=== PATIENT | male | born 1960 | race Caucasian/White ===

== ENCOUNTER → 2024-04-05 08:04 | Outpatient (REF) | payer BC, SELFPAY ==
[2024-04-05 09:01] LABS: % Eosinophils 6.5 % (0-6); % Immature Granulocytes 0.2 % (0-0.5); % Lymphocytes 28.3 % (20.5-51.1); % Monocytes 9.2 % (1.7-9.3); % Neutrophils 54.8 % (42.2-75.2); Absolute Eosinophils 0.3 10^3/uL (0-0.7); Absolute Lymphocytes 1.2 10^3/uL (1.2-3.4); Absolute Monocytes 0.4 10^3/uL (0.1-0.6); Absolute Neutrophils 2.3 10^3/uL (1.4-6.5); Hematocrit 45.6 % (39.0-52.0); Hemoglobin 15.4 g/dL (13.0-18.0); Mean Corp Hgb Conc. 33.8 g/dL (33.0-37.0); Mean Corpuscular Hgb 30.5 pg (27.0-31.0); Mean Corpuscular Volume 90.3 fL (80.0-94.0); Mean Platelet Volume 9.5 fL (7.4-10.4); Nucleated Red Blood Cells % 0 % (-); Platelet Count 288 10^3/uL (130-400); Red Blood Cell Count 5.05 10^6/uL (4.70-6.10); Red Cell Dist. Width 12.3 % (11.5-14.5); White Blood Cell Count 4.1 10^3/uL (4.8-10.8)
[2024-04-05 09:25] LABS: ALT (SGPT) 21 U/L (0-50); AST (SGOT) 27 U/L (17-59); Albumin 4.6 g/dl (3.5-5.0); Alkaline Phosphatase 58 U/L (38-126); Blood Urea Nitrogen 18 mg/dl (9-20); Calcium 9.7 mg/dl (8.4-10.2); Carbon Dioxide 29 mmol/L (22-30); Chloride 102 mmol/L (98-107); Glucose 88 mg/dl (70-99); HDL Cholesterol 79 mg/dl; LDL Cholesterol, Calculated 144 mg/dl; Sodium 142 mmol/L (135-145); Total Bilirubin 0.7 mg/dl (0.2-1.3); Total Cholesterol 234 mg/dl (50-199); Total Protein 7.3 g/dl (6.3-8.2); Triglyceride 58 mg/dl (10-149); Very Low Density Lipoprotein 11 mg/dl (0-30); eGFR > 60.00
[2024-04-07 15:22] LABS: PSA Total 3.4 ng/mL (0.0-4.0)
== END ==
LOC: REG 08:04
PROVIDERS: ATTENDING PHYSICIAN Surgery; FAMILY PHYSICIAN Nurse Practitioner
DX: Z00.00 Encounter for general adult medical examination without abnormal findings (principal); Z12.5 Encounter for screening for malignant neoplasm of prostate
CPT/HCPCS: 36415; 80053; 80061; 84153; 84154; 85025

== ENCOUNTER 2024-07-17 16:30 | Observation (INO) | payer BC, SELFPAY ==
[2024-07-17] VITALS (10 sets, daily range): BP systolic 105–158; BP diastolic 57–136; BMI 25.4; BMI 24.8
[2024-07-17 13:27] LABS: % Basophils 0.9 % (0-2); % Eosinophils 1.5 % (0-6); % Monocytes 8.2 % (1.7-9.3); % Neutrophils 68.4 % (42.2-75.2); Absolute Basophils 0.1 10^3/uL (0-0.2); Absolute Eosinophils 0.1 10^3/uL (0-0.7); Absolute Lymphocytes 1.2 10^3/uL (1.2-3.4); Absolute Monocytes 0.5 10^3/uL (0.1-0.6); Hematocrit 45.2 % (39.0-52.0); Hemoglobin 15.1 g/dL (13.0-18.0); Mean Corp Hgb Conc. 33.4 g/dL (33.0-37.0); Mean Corpuscular Hgb 30.8 pg (27.0-31.0); Mean Corpuscular Volume 92.2 fL (80.0-94.0); Mean Platelet Volume 9.1 fL (7.4-10.4); Nucleated Red Blood Cells % 0 % (-); Platelet Count 299 10^3/uL (130-400); Red Cell Dist. Width 12.1 % (11.5-14.5); White Blood Cell Count 5.8 10^3/uL (4.8-10.8)
[2024-07-17 13:37] LABS: ALT (SGPT) 16 U/L (0-50); AST (SGOT) 21 U/L (17-59); Albumin 4.8 g/dl (3.5-5.0); Alkaline Phosphatase 66 U/L (38-126); Blood Urea Nitrogen 20 mg/dl (9-20); Calcium 9.5 mg/dl (8.4-10.2); Carbon Dioxide 35 mmol/L (22-30); Chloride 98 mmol/L (98-107); Estimated Creatinine Clearance 71 ml/min; Glucose 102 mg/dl (70-99); INR 1.09; PT 14.6 Sec (11.4-14.6); Potassium 4.5 mmol/L (3.5-5.1); Sodium 137 mmol/L (135-145); Total Bilirubin 0.9 mg/dl (0.2-1.3); Total Protein 7.3 g/dl (6.3-8.2); eGFR > 60.00
[2024-07-17 13:38] LABS: APTT 29.8 Sec (23.4-35.0)
[2024-07-17 13:49] LABS: Troponin I < 0.012 ng/ml
--- NOTE | 2024-07-17 14:21 | ED.GENMED ---
History of Present Illness
General
Chief Complaint: Numbness
Source: patient
Exam Limitations: none
Time Seen by Provider: 07/17/24 13:27
Nursing documentation reviewed up to this point in time: agreed with
History of Present Illness
History of Present Illness:
63-year-old male with no reported chronic medical issues who presents to the emergency room for evaluation of left-sided facial numbness. Patient reports that he was in his normal state was driving this morning around 6 AM and had sudden onset of
left-sided facial numbness. He says he had associated dry mouth. He says that initially he thought it could be from how he was wearing his headset or something simple but symptoms were persistent for a few hours and so he ultimately decided to
come to the emergency room. He says his symptoms have since completely resolved and he is asymptomatic here. He says he did not have any associated numbness or weakness in his extremities. He did not note any facial drooping or speech
difficulties. He did not have any headache or neck pain. Did not have any associated chest pain. He denies any other complaints. He says he has never had similar symptoms in the past. He is very concerned because he has a strong family history
of stroke/TIA including both of his brothers who are only a few years older than him.
Review of Systems
Review of Systems
All Other Systems: ROS reviewed and negative except as documented in HPI and ROS
Constitutional: Denies fever
Respiratory: Denies trouble breathing
Cardiac: Denies chest pain
ABD/GI: Denies abdominal pain, nausea or vomiting
: Denies flank pain
Musculoskeletal: Denies neck pain or back pain
Neurological: Reports numbness; Denies dizzy, headache or weakness
Phy Exam
Physical Exam
Physical Exam:
General: Awake, alert, oriented x3; no acute distress
Head: Normocephalic, atraumatic
Eyes: Conjunctiva normal, EOMI, pupils equal round and reactive to light bilaterally
Throat: Airway intact, handling secretions
Neck: Trachea midline, supple without meningismus, no carotid bruits
Lungs: Clear to auscultation bilaterally, no wheezing, rales, rhonchi
Heart: Regular rate and rhythm, no murmurs, gallops, or rubs
Abd: Soft, non distended, nontender
Neuro: Cranial nerves intact 2 through 12, speech fluid with no dysarthria or aphasia, no limb ataxia, motor and sensory intact proximally distally in the upper and lower extremities
Skin: no rash
Extremities: No edema in extremities, equal pulses in all extremities
Scores
NIH Stroke Score
Level of Consciousness: 0 - Alert
LOC Questions: 0-Answers both correctly
LOC Commands: 0-Performs both correctly
Best Horizontal Gaze: 0-Normal
Visual Bee: 0=Normal, no visual loss
Facial Palsy: 0=Normal, symmetrical
Motor - Right Arm: 0=No drift 10 seconds
Motor - Left Arm: 0=No drift 10 seconds
Motor - Right Le-No drift 5 seconds
Motor - Left Le-No drift 5 seconds
Limb Ataxia: 0-Absent
Sensation: 0-Normal
Best Language: 0-No aphasia
Dysarthria: 0-Normal
Extinction and Inattention: 0-No abnormality
Total Score:: 0
Heart Failure Risk
Heart Failure Risk Score: Not Applicable
Heart Score for Chest Pain Patients
STEMI patient?: Not applicable
Withdrawal Assessment of Alcohol
Withdrawal Assessment Completed?: Not applicable
Course
Orders/Labs/Results
Orders:
Orders
07/17/24 13:04
Electrocardiogram (*1) Urgent
Reason for Study: Other
Other Reason for Exam: Possible Stroke
CT Head W/o Iv Contrast Urgent
Comment:
Reason For Exam: facial numbness
EKG- Treatment ONCE
07/17/24 13:11
Complete Blood Count/With Diff Urgent
Comprehensive Metabolic Panel Urgent
PTT Urgent
Prothrombin Time Urgent
Troponin I Urgent
Abnormal Lab Results
07/17/24
13:11
Carbon Dioxide 35 H mmol/L
(22-30)
Glucose 102 H mg/dl
(70-99)
07/17/24 13:11
07/17/24 13:11
Vital Signs
Initial and Last Documented VS:
Initial Vital Signs
Temp Pulse Resp BP Pulse Ox
36.7 C 63 18 153/79 100
07/17/24 13:00 07/17/24 13:00 07/17/24 13:00 07/17/24 13:00 07/17/24 13:00
Last Documented Vital Signs
Temp Pulse Resp BP Pulse Ox
36.7 C 55 18 115/66 100
07/17/24 13:00 07/17/24 15:00 07/17/24 15:00 07/17/24 15:00 07/17/24 13:00
MDM/Problems Addressed
Differential Diagnosis Includes:
TIA, trigeminal neuralgia, anxiety/panic, transient sialolith
MDM/Problems Addressed:
63-year-old male presents for evaluation after an episode of left-sided facial numbness and dry mouth that lasted for approximately 2 or 3 hours and has completely resolved. Hypertensive otherwise normal vitals. Physical exam as above. He had
labs sent in triage including a CBC and a CMP which showed no clinically significant abnormalities. He had an EKG which showed no STEMI and troponin which was undetectable. He had a CT head which was negative for any acute pathology. Somewhat
lower suspicion that this was a TIA based on clinical presentation but he is very concerned about his family history Case discussed with neurology to evaluate.
Discussed case with neurology recommended admission for TIA evaluation. Case discussed with hospitalist.
Acute Exacerbation and/or Progression of Chronic Illness:
Acutely hypertensive
Acute Exacerbation and/or Progression of Chronic Illness: HTN
*Radiology
Radiology exam reviewed: radiology read reviewed
*Pulse Oximetry
Patient hypoxic: no
*EKG
Interpreted by ED Provider?: Yes
Heart Rate: 60
Rate: normal
Rhythm: sinus
[place]: normal axis
Interval: normal interval
QRS Pattern: normal QRS
Ischemia: no ischemia
*Critical Care Note
Total Time (30-74mins, 75-104mins- exclusive of procedures): Not Applicable
Data Reviewed
Source: patient
Patient Management
Discussion with other providers: Hospitalist (Discussed with hospitalist) and Business Intelligence Analyst (Discussed with neurology)
Escalation/DeEscalation of care consider admission/obs:
Admission indicated
ED Attending Note
-
Portions of this chart may have been created with voice recognition software.� Occasional wrong word or��sound alike� substitutions may have occurred due to the inherent limitations of voice recognition software.
Discharge Plan
Departure
Patient Disposition: Admit
Date of Disposition: 07/17/24
Time of Disposition: 15:50
Admit to doctor: Ingrid
Presentation/result/management discussed w/ accepting MD/DO: Hospitalist
Discharge Problem:
TIA (transient ischemic attack)
Prescriptions:
No Action
Co Q-10
1 tab PO DAILY
Vitamin B-12
1 tab PO DAILY
folic acid
1 tab PO DAILY
Referrals:
Cheri Villatoro CRNP [Family Provider] -
Interventions
Interventions:
*Risk Screen - Suicide Last Done: 07/17/24 13:00
*General Assessment Last Done: 07/17/24 13:00
*Neglect/Abuse Screening Last Done: 07/17/24 13:00
ED- Fall Risk Assessment Last Done: 07/17/24 13:29
*ED COVID-19 Vaccine History Last Done: 07/17/24 13:00
ED- Neurological Assessment Last Done: 07/17/24 13:29
Discharge Date and Time
Print Language: CAMBODIAN
--- NOTE | 2024-07-17 14:23 | EDRN ---
RE- AMIO:
Hold unless over 100 sys then restart at 0.5 mg/min
--- NOTE | 2024-07-17 14:42 | CON.NEURO ---
Consultation
Order
Date of Consultation: 07/17/24
Requesting Provider: Rambo Fernandes M.D.
Reason for Consult: Numbness
Neurology Consultation Note.
HPI: This is a 63-year-old man who presented to [facility] on 07/17/2024 with transient sensory symptoms. According to the patient he developed acute left facial numbness that lasted for around 2-3 hours on the day of presentation.
The sensation was described as a 'strange feeling' localized primarily to the left side of the face, including the inside of the mouth making him to almost bite his left cheek.
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 He delayed seeking medical attention for approximately 6 hours after symptom onset. Mr. Keys states that he has had recurrent episodes of visual phenomena and was told to have
ocular migraine in the past. His visual changes would last for about 10 minutes before complete resolution and were not associated with headaches. No reports of head trauma, fever, abnormal movements. The patient reports taking 650mg on the day
of the visit.
ER VS: 153/79, 63, afebrile.
EKG: NSR, QTc Int : 398 ms
PDMP: None
Labs: Glucose�102, normal WBCs, sodium, creatinine, LFTs.
CT head wo contrast�unremarkable
PMH: DLP, BPH, elevated PSA, ED, GERD, tubular adenoma
PSH: knee arthroscopy
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
FH: Father, 2 brothers�stroke, mother�migraine
All:NKDA
ROS: Constitutional: Negative. Negative for chills, fever and unexpected weight change.
HENT:, Positive for chronic bilateral tinnitus
Eyes: Negative. Negative for photophobia, pain and visual disturbance.
Respiratory: Negative for cough, choking and shortness of breath.
Cardiovascular: Negative for chest pain, palpitations and leg swelling.
Gastrointestinal: Positive for exertional
Endocrine: Negative. Negative for cold intolerance.
Genitourinary: Negative for dysuria, flank pain and urgency.
Musculoskeletal: Negative for back pain, gait problem, neck pain and neck stiffness.
Skin: Negative for rash.
Allergic/Immunologic: Negative. Negative for immunocompromised state.
Neurological: Positive for transient facial numbness
Psychiatric/Behavioral: Negative for behavioral problems, confusion and hallucinations.
General: Well developed. In no acute distress.
Cardio: Regular rate and rhythm without murmur. Extremities are without cyanosis or edema.
Neuro:
Mental Status: Alert, oriented to person, place, and date. Normal attention and recall. Good fund of knowledge. Follows complex requests across the midline. Comprehension, naming, and repetition intact. Immediate and delayed recall 3/3.
Cranial Nerves: Pupils are equally round and reactive to light. EOMs full. Visual hebert full to confrontation. No ptosis. No nystagmus. V1-V3 intact to light touch and pinprick bilaterally, symmetric. Face symmetric. Normal hearing AU. The
palate elevated well. SCMs and traps 5/5. Tongue midline. No dysarthria.
Motor: Normal bulk and tone. No pronator or arm drift. Strength 5/5 throughout. No clonus.
Reflexes: 2+ throughout the upper extremities and 1knees. Plantar responses flexor bilaterally.
Sensory: Normal pinprick, vibration and JPS.
Coordination: No dysmetria or tremor.
Gait: deferred
Assessment and Plan:
I. TIA versus sensory aura
II. Elevated blood pressure
III. Family history of strokes
-Continue Telemetry monitoring
-Please obtain brain MRI without janes
-Check magnesium, vitamin B12, globin A1c, lipid panel
-DAPT for 3 weeks
-Further workup will depend on brain MRI results
-DVT prophylaxis.
I personally reviewed all radiology and labs along with past medical records pertinent to current medical problems. Total time spent in patient care is 60 minutes.
Thank you for allowing us to participate in the care of this patient. We will continue to follow. Please do not hesitate to contact us with any questions or concerns.
Subjective/Objective
Subjective Data
Date of Service: July 17, 2024
Objective Data
Vital Signs
Temp Pulse Resp BP Pulse Ox
36.7 C 68 12 128/75 100
07/17/24 13:00 07/17/24 14:18 07/17/24 14:18 07/17/24 13:27 07/17/24 13:00
Lab Results
07/17/24 13:11
07/17/24 13:11
PT 14.6 Sec (11.4-14.6) 07/17/24 13:11
INR 1.09 07/17/24 13:11
APTT 29.8 Sec (23.4-35.0) 07/17/24 13:11
Sodium 137 mmol/L (135-145) 07/17/24 13:11
Potassium 4.5 mmol/L (3.5-5.1) 07/17/24 13:11
BUN 20 mg/dl (9-20) 07/17/24 13:11
Glucose 102 mg/dl (70-99) H 07/17/24 13:11
Calcium 9.5 mg/dl (8.4-10.2) 07/17/24 13:11
Patient Allergies
No Known Drug Allergies Allergy (Verified 07/17/24 13:03)
Unknown
Medications
-
Home Medications
�Medication �Instructions �Recorded
Co Q-10 1 tab PO DAILY 07/17/24
Vitamin B-12 1 tab PO DAILY 07/17/24
folic acid 1 tab PO DAILY 07/17/24
Vital Signs and Labs
-
Vital Signs and Labs:
Vital Signs
Temp Pulse Resp BP Pulse Ox
36.7 C 68 12 128/75 100
07/17/24 13:00 07/17/24 14:18 07/17/24 14:18 07/17/24 13:27 07/17/24 13:00
Lab Results
07/17/24 13:11
07/17/24 13:11
PT 14.6 Sec (11.4-14.6) 07/17/24 13:11
INR 1.09 07/17/24 13:11
APTT 29.8 Sec (23.4-35.0) 07/17/24 13:11
Sodium 137 mmol/L (135-145) 07/17/24 13:11
Potassium 4.5 mmol/L (3.5-5.1) 07/17/24 13:11
BUN 20 mg/dl (9-20) 07/17/24 13:11
Glucose 102 mg/dl (70-99) H 07/17/24 13:11
Calcium 9.5 mg/dl (8.4-10.2) 07/17/24 13:11
Home Medications
-
Home Medications
Co Q-10 1 tab PO DAILY 07/17/24
Vitamin B-12 1 tab PO DAILY 07/17/24
folic acid 1 tab PO DAILY 07/17/24
--- NOTE | 2024-07-17 16:28 | HPS.HSE ---
Family Physician
-
Family Physician: Cheri Villatoro
Chief Complaint
-
numbness of left face
History of Present Illness
63-year-old male past medical history of presenting with left-sided facial numbness. He was in his normal state of health and was driving this morning and around 6 AM he had sudden onset of left-sided facial numbness. He had associated dry mouth.
His symptoms persisted for a few hours so he ultimately decided to come to the emergency room. He took aspirin today. His symptoms have since mostly resolved some residual warm feeling and denies any other symptoms currently. He denies any
numbness or focal weakness. Denies any facial droop or speech difficulties. Denies any headache or neck pain. Denies chest pain.
Denies history of cardiac problems or high blood pressure.
A few years ago he had loss of smell and saw a neurologist who ordered MRI brain noted a small spot in his brain with no further follow-up.
He has strong family history of stroke/TIA in both of his brothers and father.
He drinks alcohol occasionally. Denies smoking.
Medical History
Past Medical History
Past Medical History: Reports None
Past Surgical History: Reports None
Social History
Tobacco: Non-smoker
Alcohol: Occasional
Drug: None
Family History
Family History: Not pertinent
Allergies / Home Medications
Allergies reflects when Allergies were last updated in [employer].
Home Medications with original date entered in [employer]
Allergy/Medication List:
Allergies
Allergy/AdvReac Type Severity Reaction Status Date / Time
No Known Drug Allergies Allergy Unknown Verified 07/17/24 13:03
Home Medications
aspirin 325 mg tablet 325 mg PO DAILYPRN PRN numbness 07/17/24
cholecalciferol (vitamin D3) 25 mcg (1,000 unit) tablet (Vitamin D3) 25 mcg PO QPM 07/17/24
coenzyme Q10 100 mg capsule (CoQ-10) 100 mg PO QPM 07/17/24
cyanocobalamin (vitamin B-12) 1,000 mcg tablet 1,000 mcg PO QPM 07/17/24
folic acid 800 mcg tablet 0.8 mg PO QPM 07/17/24
Review of Systems
-
History Source: Patient
A 12 point ROS was completed and negative except as noted: Yes
Constitutional: Reports No Symptoms
EENT: Reports No Symptoms
Respiratory: Reports No Symptoms
Cardiac: Reports No Symptoms
Abdomen/GI: Reports No Symptoms
: Reports No Symptoms
Musculoskeletal: Reports No Symptoms
Skin: Reports No Symptoms
Neurological: Reports No Symptoms
Endocrine: Reports No Symptoms
Hematologic/Lymphatic: Reports No Symptoms
Psych: Reports No Symptoms
Physical Exam
Vital Signs
Vital Signs
Temp Pulse Resp BP Pulse Ox
98.1 F 59 17 140/93 100
07/17/24 13:00 07/17/24 16:00 07/17/24 16:00 07/17/24 16:00 07/17/24 13:00
Physical Exam
General: Well Developed, Well Nourished and No Apparent Distress
HEENT: NormoCephalic, Moist mucous membranes and Atraumatic
Respiratory: Clear
Cardiac: S1/S2 and Regular Rhythm; No Murmur or Rub
GI: Soft, Non Tender, Non Distended and Normal Bowel Sounds; No Organomegaly
Rectal: Deferred by Provider
Musculoskeletal: No Clubbing, No Cyanosis and No Edema
Skin: No Rash
Neuro: Nonfocal/grossly intact
Laboratory Results
-
07/17/24 13:11
07/17/24 13:11
Laboratory Results
PT 14.6 Sec (11.4-14.6) 07/17/24 13:11
INR 1.09 07/17/24 13:11
APTT 29.8 Sec (23.4-35.0) 07/17/24 13:11
Total Bilirubin 0.9 mg/dl (0.2-1.3) 07/17/24 13:11
AST 21 U/L (17-59) 07/17/24 13:11
ALT 16 U/L (0-50) 07/17/24 13:11
Alkaline Phosphatase 66 U/L (38-126) 07/17/24 13:11
Troponin I < 0.012 ng/ml 07/17/24 13:11
Data Reviewed
-
Lab Data: Labs Reviewed by me
Old Records: Reviewed
Impression/Plan
-
IMPRESSION:
PLAN:
# TIA
-No symptoms currently or focal neurological deficits
-CT head shows no acute abnormality apart from bilateral ethmoid sinusitis
-Start aspirin
-CT angio head and neck pending
-Check MRI brain
-Check A1c and lipid panel
-Neurology consulted
Full code
DVT prophylaxis�SCDs
Regular diet
[2024-07-17] MEDS: VITAMIN B-12 1000 MCG PO (21:15)
--- NOTE | 2024-07-17 21:30 | PTCARENOTE ---
patient arrived from ED. VSS. Denies pain. Neuro check and NIH completed. NIH=0. PERRLA, tongue is midline, speech is clear/spontaneous/logical. Patient denies numbness/tingling. Sensations intact. OLSON with 5/5 strengths. OOB independently. Stroke
packet given and on patient's bedside table. Dual skin check completed with VALERI Mitchell. Patient and updated on plan of care. Telemetry placed--tele box # [id number]. Patient oriented to room and educated on importance of ringing before getting OOB to
use the restroom to decrease risk of falling, while in the hospital. Bed in lowest position. Call ibanez and personal belongings within reach.
[2024-07-17 22:32] LABS: HDL Cholesterol 75 mg/dl; LDL Cholesterol, Calculated 137 mg/dl; Total Cholesterol 229 mg/dl (50-199); Triglyceride 89 mg/dl (10-149); Very Low Density Lipoprotein 17 mg/dl (0-30)
[2024-07-18 03:00] VITALS: BP 128/72
[2024-07-18 07:30] VITALS: BP 137/82
[2024-07-18 07:50] LABS: % Basophils 0.9 % (0-2); % Eosinophils 3.8 % (0-6); % Immature Granulocytes 0.3 % (0-0.5); % Lymphocytes 30.8 % (20.5-51.1); % Monocytes 10.4 % (1.7-9.3); % Neutrophils 53.8 % (42.2-75.2); Absolute Eosinophils 0.1 10^3/uL (0-0.7); Absolute Monocytes 0.4 10^3/uL (0.1-0.6); Absolute Neutrophils 1.8 10^3/uL (1.4-6.5); Hematocrit 44.2 % (39.0-52.0); Hemoglobin 14.9 g/dL (13.0-18.0); Mean Corp Hgb Conc. 33.7 g/dL (33.0-37.0); Mean Corpuscular Hgb 30.8 pg (27.0-31.0); Mean Corpuscular Volume 91.5 fL (80.0-94.0); Mean Platelet Volume 9.6 fL (7.4-10.4); Nucleated Red Blood Cells % 0 % (-); Platelet Count 266 10^3/uL (130-400); Red Blood Cell Count 4.83 10^6/uL (4.70-6.10); Red Cell Dist. Width 12.4 % (11.5-14.5); White Blood Cell Count 3.4 10^3/uL (4.8-10.8)
[2024-07-18] MEDS: LOW STRENGTH ASPIRIN 81 MG PO (07:57)
[2024-07-18] MEDS: PLAVIX 75 MG PO (07:57)
--- NOTE | 2024-07-18 08:01 | W.PN.NEURO.1 ---
Today's Communication / Plan
-
.
Subjective/Objective
Subjective Data
Date of Service: July 18, 2024
Neurology follow-up note
24-hour events: Normotensive, intermittently bradycardic, afebrile.
Mr. Keys reports no new sensory, motor visual symptoms since admission.
Labs: LDL�137. Brain MRI�pending
PMH: DLP, BPH, elevated PSA, ED, GERD, tubular adenoma
PSH: knee arthroscopy
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
FH: Father, 2 brothers�stroke, mother�migraine
All:NKDA
ROS: Constitutional: Negative. Negative for chills, fever and unexpected weight change.
HENT:, Positive for chronic bilateral tinnitus
Eyes: Negative. Negative for photophobia, pain and visual disturbance.
Respiratory: Negative for cough, choking and shortness of breath.
Cardiovascular: Negative for chest pain, palpitations and leg swelling.
Gastrointestinal: Positive for exertional
Endocrine: Negative. Negative for cold intolerance.
Genitourinary: Negative for dysuria, flank pain and urgency.
Musculoskeletal: Negative for back pain, gait problem, neck pain and neck stiffness.
Skin: Negative for rash.
Allergic/Immunologic: Negative. Negative for immunocompromised state.
Neurological: Positive for transient facial numbness
Psychiatric/Behavioral: Negative for behavioral problems, confusion and hallucinations.
General: Well developed. In no acute distress.
Cardio: Regular rate and rhythm without murmur. Extremities are without cyanosis or edema.
Neuro:
Mental Status: Alert, oriented to person, place, and date. Normal attention and recall. Good fund of knowledge. Follows complex requests across the midline. Comprehension, naming, and repetition intact. Immediate and delayed recall 3/3.
Cranial Nerves: Pupils are equally round and reactive to light. EOMs full. Visual hebert full to confrontation. No ptosis. No nystagmus. V1-V3 intact to light touch and pinprick bilaterally, symmetric. Face symmetric. Normal hearing AU. The
palate elevated well. SCMs and traps 5/5. Tongue midline. No dysarthria.
Motor: Normal bulk and tone. No pronator or arm drift. Strength 5/5 throughout. No clonus.
Coordination: No dysmetria or tremor.
Gait: deferred
Assessment and Plan:
I. TIA versus sensory aura
II. Elevated blood pressure
III. Family history of strokes
-Continue Telemetry monitoring
-Please obtain brain MRI without janes
-Check magnesium, vitamin B12, globin A1c, lipid panel
-DAPT for 3 weeks
-Further workup will depend on brain MRI results
-DVT prophylaxis.
I personally reviewed all radiology and labs along with past medical records pertinent to current medical problems. Total time spent in patient care is 60 minutes.
Thank you for allowing us to participate in the care of this patient. We will continue to follow. Please do not hesitate to contact us with any questions or concerns
Objective Data
Vital Signs
Temp Pulse Resp BP Pulse Ox
36.3 C 55 18 128/72 96
07/18/24 03:00 07/18/24 03:00 07/18/24 03:00 07/18/24 03:00 07/18/24 03:00
Lab Results
07/18/24 06:48
PT 14.6 Sec (11.4-14.6) 07/17/24 13:11
INR 1.09 07/17/24 13:11
APTT 29.8 Sec (23.4-35.0) 07/17/24 13:11
Sodium 137 mmol/L (135-145) 07/17/24 13:11
Potassium 4.5 mmol/L (3.5-5.1) 07/17/24 13:11
BUN 20 mg/dl (9-20) 07/17/24 13:11
Glucose 102 mg/dl (70-99) H 07/17/24 13:11
Calcium 9.5 mg/dl (8.4-10.2) 07/17/24 13:11
LDL Cholesterol, Calc Cancelled 07/17/24 19:58
Patient Allergies
No Known Drug Allergies Allergy (Verified 07/17/24 13:03)
Unknown
Vital Signs and Labs
-
Vital Signs and Labs:
Vital Signs
Temp Pulse Resp BP Pulse Ox
36.3 C 55 18 128/72 96
07/18/24 03:00 07/18/24 03:00 07/18/24 03:00 07/18/24 03:00 07/18/24 03:00
Lab Results
07/18/24 06:48
PT 14.6 Sec (11.4-14.6) 07/17/24 13:11
INR 1.09 07/17/24 13:11
APTT 29.8 Sec (23.4-35.0) 07/17/24 13:11
Sodium 137 mmol/L (135-145) 07/17/24 13:11
Potassium 4.5 mmol/L (3.5-5.1) 07/17/24 13:11
BUN 20 mg/dl (9-20) 07/17/24 13:11
Glucose 102 mg/dl (70-99) H 07/17/24 13:11
Calcium 9.5 mg/dl (8.4-10.2) 07/17/24 13:11
LDL Cholesterol, Calc Cancelled 07/17/24 19:58
Medications
-
Medications:
Generic Name Dose Route Start Last Admin
Trade Name Freq PRN Reason Stop Dose Admin
Aspirin 81 mg 07/18/24 08:00 07/18/24 07:57
Aspirin 81 Mg Chewable Tablet PO 08/15/24 07:59 81 mg
DAILY ZAKI Administration
Cholecalciferol 25 mcg 07/17/24 19:58 07/17/24 21:14
Cholecalciferol (Vitamin D3) 25 Mcg Tablet (1,000 Units) PO 08/14/24 19:57 Not Given
QPM ZAKI
Clopidogrel Bisulfate 75 mg 07/18/24 08:00 07/18/24 07:57
Clopidogrel 75 Mg Tablet PO 08/15/24 07:59 75 mg
DAILY ZAKI Administration
Cyanocobalamin 1,000 mcg 07/17/24 19:58 07/17/24 21:15
Cyanocobalamin 1,000 Mcg Tablet PO 08/14/24 19:57 1,000 mcg
QPM ZAKI Administration
Folic Acid 0.8 mg 07/17/24 20:15 07/17/24 21:14
Folic Acid 0.4 Mg Tablet PO 08/14/24 20:14 Not Given
QPM ZAKI
Home Medications
-
Home Medications
aspirin 325 mg tablet 325 mg PO DAILYPRN PRN numbness 07/17/24
cholecalciferol (vitamin D3) 25 mcg (1,000 unit) tablet (Vitamin D3) 25 mcg PO QPM Supplement 07/17/24
coenzyme Q10 100 mg capsule (CoQ-10) 100 mg PO QPM Supplement 07/17/24
cyanocobalamin (vitamin B-12) 1,000 mcg tablet 1,000 mcg PO QPM Supplement 07/17/24
folic acid 800 mcg tablet 0.8 mg PO QPM Supplement 07/17/24
[2024-07-18 08:27] LABS: ALT (SGPT) 15 U/L (0-50); AST (SGOT) 19 U/L (17-59); Albumin 3.9 g/dl (3.5-5.0); Alkaline Phosphatase 67 U/L (38-126); Blood Urea Nitrogen 16 mg/dl (9-20); Calcium 9.2 mg/dl (8.4-10.2); Carbon Dioxide 28 mmol/L (22-30); Chloride 103 mmol/L (98-107); Estimated Creatinine Clearance 88 ml/min; Glucose 91 mg/dl (70-99); Magnesium 2.4 mg/dl (1.6-2.3); Potassium 4.4 mmol/L (3.5-5.1); Sodium 136 mmol/L (135-145); Total Bilirubin 0.8 mg/dl (0.2-1.3); Total Protein 6.4 g/dl (6.3-8.2); eGFR > 60.00
--- NOTE | 2024-07-18 09:46 | W.PN.HOSP.TC ---
Addendum entered and electronically signed by Callum Davenport MD 07/18/24 23:46:
Attending Addendum-
I saw and evaluated the patient. I reviewed the resident�s note and agree with findings and plan as documented in the resident�s note. Sub: feels great. Neuro sxs resolved. Wants to go home. Full 12 point ROS reviewed and negative except as
documented Exam: Vitals reviewed in chart GEN-NAd heart RRR lungs clear abd soft LE no edema Neuro AAO x 3 MS 5.5 sensation intact no cerebellar deficits.
# TIA
-MRI - no acute intracranial abnormality
-Continue combo DAPT x 3 weeks then asa indefinitely
-Echo unremarkable with pulmonary artery pressure of 21 mmHg
-Discharge home
-Follow-up with outpatient neurology in 3 to 4 weeks.
# Hyperlipidemia
-Start atorvastatin
# Hypertension
-Elevated blood pressure on arrival 153/79
-Improved without any intervention; variable readings
- f/u as OP
Dispo DC home
Time spent coordinating care, DC planning, review of DC plan of care with resident, transition of care, review of records, med rec/scripts sent electronically, consults, notes, d/w consultants, nursing, family, and CM�33 mins
Original Note:
Today's Communication/Plan
-
Discharge home
Continue aspirin 81 and Plavix 75 mg for 3 weeks
Continue atorvastatin daily at bedtime
Assessment / Plan
Assessment / Plan
63-year-old male with no significant past medical history presented to the emergency department after experiencing acute left facial numbness that lasted for 2 to [address]: IMPRESSION:
There are no intracranial abnormalities
There is moderate-severe bilateral ethmoid sinusitis
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
Mild atherosclerotic disease involving the carotid bulbs and proximal internal carotid arteries bilaterally with no evidence for hemodynamically significant stenosis.
No evidence for intracranial large vessel occlusion.
No significant narrowing of the vertebral or basilar arteries. No significant narrowing of the posterior cerebral arteries bilaterally.
MRI brain: No acute intracranial abnormality noted.
Sequelae of mild small vessel ischemic disease with a small focus of encephalomalacia within the lateral left parietal lobe.
Moderate mucosal thickening of the right maxillary sinus with partial opacification of the ethmoid air cells
# TIA versus sensory aura
# Family history of CVAs; known history of ocular migraine
-- No symptoms or focal neural logic deficit at this time
-- Continue telemetry
-- CT and CTA as above
-- Trops negative
-- Magnesium 2.4; B12 670, A1c 5.4.
-- MRI did not show any acute intracranial abnormality
-- Continue aspirin and Plavix; plan for 3 weeks
-- Echo unremarkable with pulmonary artery pressure of 21 mmHg
-- Discharge home
-- Follow-up with outpatient neurology in 3 to 4 weeks.
# Hyperlipidemia
--Lipid profile with total cholesterol 229; LDL 137
--ASCVD 8.7
-- Start atorvastatin 10 mg every afternoon
# Hypertension
--Elevated blood pressure on arrival 153/79
--Improved without any intervention; variable readings
-- Advised to monitor at home and follow-up with PCP if continues to stay elevated to consider starting a medication
Full code
Anticipated Discharge: Today
Subjective/Interval History
-
Date of Service: July 18, 2024
Patient offers no new complaints. States that he is feeling fine.
Objective Data
-
Labs:
Laboratory Results
07/18/24
06:48
WBC 3.4 L
Hgb 14.9
Hct 44.2
Plt Count 266
Sodium 136
Potassium 4.4
Chloride 103
Carbon Dioxide 28
BUN 16
Creatinine 0.9
Glucose 91
Calcium 9.2
Total Bilirubin 0.8
AST 19
ALT 15
Alkaline Phosphatase 67
Vital Signs:
Vital Signs
Temp Pulse Resp BP Pulse Ox
97.8 F 53 18 137/82 99
07/18/24 07:30 07/18/24 07:30 07/18/24 07:30 07/18/24 07:30 07/18/24 07:30
I&O
07/17/24 07/18/24 07/19/24
06:59 06:59 06:59
Intake Total 320 / 320
Balance 320 / 320
Review of Systems
-
History Source: Patient
Constitutional: Reports No Symptoms
EENT: Reports No Symptoms Reported
Respiratory: Reports No Symptoms
Cardiac: Reports No Symptoms
Abdomen/GI: Reports No Symptoms
Genitourinary: Reports No Symptoms
Musculoskeletal: Reports No Symptoms
Skin: Reports No Symptoms
Neuro: Reports No Symptoms
Physical Exam
-
General: Well Developed, Well Nourished and No Apparent Distress
HEENT: Normocephalic and Atraumatic
Respiratory: Clear to Auscultation; Negative Wheezes, Rales, Rhonchi or Crackles
Cardiac: Regular Rhythm and S1/S2; Negative Murmur
GI: Soft, Nontender and Nondistended
Musculoskeletal: No Clubbing, No Cyanosis and No Edema
Neuro: Awake, Alert, Oriented, Nonfocal/Grossly Intact, Central Nerve's Intact and No Sensory Deficits
Psych: Calm
Data Reviewed
-
CT Scan: Report Reviewed by me
Labs: Labs Reviewed by me, Discussed with Physician and Discussed with Patient
[2024-07-18 10:16] LABS: Glycohemoglobin (HgbA1c) 5.4 % (4.0-5.6)
[2024-07-18 11:25] VITALS: BP 124/69
[2024-07-18 11:51] LABS: Vitamin B12 670 pg/ml (239-931)
--- NOTE | 2024-07-18 14:32 | CM ---
Initial assessment completed. Admitted for numbness of left face.
Pt reports that he lives w/ spouse in a [facility]- 2 steps to enter. Pt is independent w/ ambulating and w/ ADLs, no DME needed or identified.
Pt denies SNF/VN/PT hx. Pt denies any current OP or home services at this time.
Address, point of contact and insurance verified
PCP: Dr. Cheri Villatoro
Pharmacy: [address], [place]
Pt currently admitted as OBS, OOBS form reviewed, pt denied needing a copy. Copy on chart
Pt shared he may be d/c today
Plan: Home; no needs
[2024-07-18 15:00] VITALS: BP 137/76
--- NOTE | 2024-07-18 18:00 | W.DCSUMMARY ---
Addendum entered and electronically signed by Callum Davenport MD 07/18/24 23:47:
Read, reviewed, and agree. See same day progress note for additional details.
Gonzalez Davenport MD
Original Note:
Documented by User: Navarro Cox MD, Resident 07/18/24 18:15
Discharge Summary
Discharge Data
Date of Admission: 07/17/24
Date of Discharge: 07/18/24
-
Pending Results: No
Hospital Course
Discharging Physician : Navarro Cox MD ; Clalum Davenport MD
Disposition : Home
Primary care physician : Cheri Villatoro
Principal Discharge diagnosis : Transient ischemic attack
Chronic Discharge diagnosis : hyperlipidemia, hypertension
Hospital Course : 63-year-old male with no significant past medical history presented to the emergency department after experiencing acute left facial numbness that lasted for 2 to 3 hours. He presented in the ER after 6 to 7 hours of the symptoms.
1. Transient ischemic attack
There is a possibility that it was just a sensory aura due to known episodes of ocular migraine in the past however TIA cannot be ruled out. He has a strong family history of CVAs. At the time of presentation in the ER and during his stay there
was no neurological deficit on physical. Further imaging was obtained results below. Neurology was also consulted. Troponin were negative. Echo was also obtained which was unremarkable except slightly elevated pulmonary artery pressure. He was
started on Plavix and aspirin and a prescription was sent upon discharge and he was instructed to complete total 21-day's of both medication. Serum magnesium, vitamin B12 were within normal limits. HbA1c was 5.4. He was instructed to follow-up
with outpatient neurology in 3 to 4 weeks. He was provided with brochure with information regarding signs and symptoms of stroke and risks.
2. Hyperlipidemia
Routine blood work was obtained on arrival which also included lipid profile which showed total cholesterol of 229 and LDL of 137. His ASCVD score was 8.7%. Recommended moderate intensity statin. He was started on atorvastatin 10 mg and a
prescription was sent upon discharge. He was advised to follow-up with PCP for further evaluation and repeat blood work.
3. Hypertension
On arrival he was found to have elevated blood pressure 153/79. He had variable readings with systolic blood pressure ranging from 110s to 140s during his stay. He was advised to monitor blood pressure at home and follow-up with PCP for evaluation
and consideration of medication if blood pressure continues to remain high. He verified understanding and plans to make a blood pressure log at home. Discussed possible risks associated with elevated blood pressure.
Important imaging findings :
Head CT: IMPRESSION:
There are no intracranial abnormalities
There is moderate-severe bilateral ethmoid sinusitis
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
Mild atherosclerotic disease involving the carotid bulbs and proximal internal carotid arteries bilaterally with no evidence for hemodynamically significant stenosis.
No evidence for intracranial large vessel occlusion.
No significant narrowing of the vertebral or basilar arteries. No significant narrowing of the posterior cerebral arteries bilaterally.
MRI brain: No acute intracranial abnormality noted.
Sequelae of mild small vessel ischemic disease with a small focus of encephalomalacia within the lateral left parietal lobe.
Moderate mucosal thickening of the right maxillary sinus with partial opacification of the ethmoid air cells
Procedure findings :
EKG: NORMAL SINUS RHYTHM
NORMAL ECG
ECHO: CONCLUSIONS
Normal LV size and function with no regional wall motion abnormalities.
LVEF is 60-65% by visual estimation.
Normal diastolic function.
Normal right ventricular size and function.
No significant valvular disease.
Estimated pulmonary artery pressure of 21 mmHg assuming a right atrial pressure
of 3 mmHg.
No prior study available for comparison.
Discharge Plan
-
Patient Disposition: Home (Routine Discharge)
Discharge Diagnosis/Procedures: TIA, hyperlipidemia, hypertension
Condition: Good
Diet: Low Cholesterol
Activity: No restrictions
Driving Restrictions: As prior to admission
Bathing Restrictions: None
Referrals:
Honchar,Rebecca, MD [Active] - in three to four weeks
Cheri Villatoro CRNP [Family Provider] - in less than 1 week
Additional Discharge Medication Instructions: Take aspirin 81 mg 1 tablet by mouth daily
Take clopidogrel(Plavix) 75 mg 1 tablet by mouth daily for additional 20 days
Take atorvastatin 10 mg 1 tablet at bedtime daily
Follow-up with PCP within 1 week
Follow-up with outpatient neurology in 3 to 4 weeks
Prescriptions:
New
atorvastatin 10 mg Tablet
10 mg PO QPM Qty: 30 0RF
clopidogrel 75 mg Tablet
75 mg PO DAILY Qty: 20 0RF
aspirin 81 mg Tablet,Chewable
81 mg PO DAILY Qty: 30 0RF
Continued
cyanocobalamin (vitamin B-12) 1,000 mcg Tablet
1,000 mcg PO QPM
folic acid 800 mcg Tablet
0.8 mg PO QPM
coenzyme Q10 [CoQ-10] 100 mg Capsule
100 mg PO QPM
cholecalciferol (vitamin D3) [Vitamin D3] 25 mcg (1,000 unit) Tablet
25 mcg PO QPM
Discontinued
aspirin 325 mg Tablet
325 mg PO DAILYPRN PRN (Reason: numbness)
Discharge Orders:
Discharge Patient (As Directed); Ordered 07/18/24
Ordered By: Navarro Cox
Discharge Date and Time
Discharge Date/Time: 07/18/24 16:31
Print Language: POLISH

Documented by User: Callum Davenport MD 07/18/24 23:41
Discharge Summary
Discharge Data
Date of Admission: 07/17/24
Date of Discharge: 07/18/24
Discharge Plan
-
Patient Disposition: Home (Routine Discharge)
Discharge Diagnosis/Procedures: TIA, hyperlipidemia, hypertension
Condition: Good
Diet: Low Cholesterol
Activity: No restrictions
Driving Restrictions: As prior to admission
Bathing Restrictions: None
Referrals:
Rebecca Nova MD [Active] - in three to four weeks
Cheri Villatoro CRNP [Family Provider] - in less than 1 week
Additional Discharge Medication Instructions: Take aspirin 81 mg 1 tablet by mouth daily
Take clopidogrel(Plavix) 75 mg 1 tablet by mouth daily for additional 20 days
Take atorvastatin 10 mg 1 tablet at bedtime daily
Follow-up with PCP within 1 week
Follow-up with outpatient neurology in 3 to 4 weeks
Prescriptions:
New
atorvastatin 10 mg Tablet
10 mg PO QPM Qty: 30 0RF
clopidogrel 75 mg Tablet
75 mg PO DAILY Qty: 20 0RF
aspirin 81 mg Tablet,Chewable
81 mg PO DAILY Qty: 30 0RF
Continued
cyanocobalamin (vitamin B-12) 1,000 mcg Tablet
1,000 mcg PO QPM
folic acid 800 mcg Tablet
0.8 mg PO QPM
coenzyme Q10 [CoQ-10] 100 mg Capsule
100 mg PO QPM
cholecalciferol (vitamin D3) [Vitamin D3] 25 mcg (1,000 unit) Tablet
25 mcg PO QPM
Discontinued
aspirin 325 mg Tablet
325 mg PO DAILYPRN PRN (Reason: numbness)
Discharge Orders:
Discharge Patient (As Directed); Ordered 07/18/24
Ordered By: Navarro Cox
Discharge Date and Time
Discharge Date/Time: 07/18/24 16:31
Print Language: POLISH
== END 2024-07-18 16:31 | disposition home or self-care (01) ==
LOC: 4 WEST ACU 16:30
PROVIDERS: Emergency Medicine; ADMITTING PHYSICIAN Hospitalist; ATTENDING PHYSICIAN Family Medicine; CONSULT PHYSICIAN Psychiatry & Neurology Neurology; EMERGENCY PHYSICIAN Emergency Medicine; FAMILY PHYSICIAN Nurse Practitioner
DX: G45.9 Transient cerebral ischemic attack, unspecified (principal); R20.0 Anesthesia of skin; R68.2 Dry mouth, unspecified; R03.0 Elevated blood-pressure reading, without diagnosis of hypertension; R00.1 Bradycardia, unspecified; J32.2 Chronic ethmoidal sinusitis; N40.0 Benign prostatic hyperplasia without lower urinary tract symptoms; E78.5 Hyperlipidemia, unspecified; I25.10 Atherosclerotic heart disease of native coronary artery without angina pectoris; G93.89 Other specified disorders of brain; I67.82 Cerebral ischemia; K21.9 Gastro-esophageal reflux disease without esophagitis; R97.20 Elevated prostate specific antigen [PSA]; Z86.0101 Personal history of adenomatous and serrated colon polyps; Z82.3 Family history of stroke
CPT/HCPCS: 70450; 70496; 70498; 70551; 80053; 80061; 82607; 83036; 83735; 84484; 85025; 85610; 85730; 93005; 93306; 99285; G0378; Q9967